=== PATIENT | female | born 1975 | race Caucasian/White ===

== ENCOUNTER 2018-04-23 04:38 | Observation (INO) | payer BC ==
[2018-04-23] MEDS ORDERED: ONDANSETRON 4 MG/2 ML VIAL ONE (04:48)
[2018-04-23] MEDS ORDERED: NS 1,000 ML IV ONE ×3 (04:56→06:43)
[2018-04-23] MEDS ORDERED: PROMETHAZINE HCL 25 MG/ML INJ IVP ONE (05:04)
[2018-04-23] MEDS ORDERED: PROMETHAZINE HCL 25 MG/ML INJ ONE (05:04)
--- NOTE | 2018-04-23 05:05 | EDPHY ---
H & P Stated Complaint: ABD PAIN, N/V SINCE /DIARRHEA SINCE Time Seen by Provider: 04/23/18 05:05 HPI/ROS: HPI CHIEF COMPLAINT: Nausea vomiting diarrhea severe abdominal pain HISTORY OF PRESENT ILLNESS: This patient very pleasant 42-year-old female, she is visiting from out of town from [place] last night around 10:00 p.m. She started developing nausea vomiting and diarrhea mainly watery no blood. Denies any fever. She now presents to the emergency room as she vomited she thinks 15 times and had multiple episodes of watery diarrhea. Her main complaint is severe abdominal cramping. She has not had a fever. She has been dry heaving. She is visiting from [place]. She denies any significant alcohol intake. She does state that in the airport she had a chicken sandwich on that seemed to be undercooked however she did not eat did meet and threw it out. She said she felt fine Tuesday and Tuesday night developed significant nausea vomiting and diarrhea. She did recently last week start on Lexapro low-dose 10 mg. Past Medical History: Denies significant medical history except for anxiety and depression Past Surgical History: Denies significant surgical history except for toe surgery Social History: Denies daily use of drugs alcohol tobacco. Resides in [place]. Family History: Noncontributory ROS REVIEW OF SYSTEMS: A comprehensive 10 point review of systems is otherwise negative aside from elements mentioned in the history of present illness. Exam Constitutional appears nontoxic however actively vomiting and dry heaving triage nursing summary reviewed, vital signs reviewed, awake/alert. Eyes normal conjunctivae and sclera, EOMI, PERRLA. HENT normal inspection, atraumatic, dry mucus membranes, no epistaxis, neck supple/ no meningismus, no raccoon eyes. Respiratory clear to auscultation bilaterally, normal breath sounds, no respiratory distress, no wheezing. Cardiovascular rate normal, regular rhythm, no murmur, no edema, distal pulses normal. Gastrointestinal mild tender to palpation diffusely, no peritoneal signs, no rebound, no guarding, normal bowel sounds, no distension, no pulsatile mass. Genitourinary no CVA tenderness. Musculoskeletal no midline vertebral tenderness, full range of motion, no calf swelling, no tenderness of extremities, no meningismus, good pulses, neurovascularly intact. Skin pink, warm, & dry, no rash, skin atraumatic. Neurologic awake, alert and oriented x 3, AAOx3, moves all 4 extremities equally, motor intact, sensory intact, CN II-XII intact, normal cerebellar, normal vision, normal speech. Psychiatric normal mood/affect. Heme/Lymph/Immune no lymphadenopathy. Differential diagnosis includes but is not limited to and in no particular order : Bowel obstruction, appendicitis, gallbladder disease, diverticulitis, colitis , enteritis, perforated viscus, gastritis, GERD, esophagitis, urinary tract infection, pyelonephritis, kidney stones Medical Decision Making: Plan for this patient IV establishment IV fluid bolus 2 L normal saline, IV Phenergan for nausea IV Ativan for anxiety, lab work including abdominal labs and test, urinalysis, CT scan abdomen pelvis with IV contrast. Re-evaluation: 0631: Blood work has been reviewed elevated lactic acid most likely due to volume depletion. She is not hypotensive and she is not febrile. However she has had extensive nausea vomiting and diarrhea. She received 2 L of fluid here in the emergency room. Will repeat lactic acid to make sure it is trending down. I did review her other blood work shows a mild leukocytosis. I have asked for stool study as well. Her CT scan shows diffuse colitis. I discussed the case with the hospitalist service Dr. Fox. He agrees to admit the patient for colitis nausea vomiting and diarrhea volume depletion dehydration. Additionally I spoke with Gastroenterology Dr. Mata, who will consult on the patient. Discussed antibiotics were no antibiotics this time will hold off on antibiotics until stool studies have resulted. Patient is comfortable being admitted and will prefer this. She is doing better after Phenergan and Ativan. I as well as IV fluids. 0644: Patient re-evaluated this time is feeling better with IV fluids nausea medicine. Abdomen mildly tender but no peritoneal signs. I discussed the patient's blood work and CT scan results with her. Additionally discussed reason for admission she is comfortable this would prefer to be admitted today. I have ordered her 3rd L fluid. She is volume depleted. Dehydrated. Patient be admitted to the medicine service with a gastroenterology consult. She is not vomiting here and she is comfortable this plan. 2nd lactic is repeated as her 1st 1 was very high. Lactic trended down 6.7-3.0. Getting 3rd L fluid. Not hypotensive or febrile. The lactic acid is not elevated due to sepsis it is elevated due to volume depletion. Source: Patient - Personal History LMP (Females 10-55): Unknown Current Tetanus Diphtheria and Acellular Pertussis (TDAP): Yes - Medical/Surgical History Hx Asthma: No Hx Chronic Respiratory Disease: No Hx Diabetes: No Hx Cardiac Disease: No Hx Renal Disease: No Hx Cirrhosis: No Hx Alcoholism: No Hx HIV/AIDS: No Hx Splenectomy or Spleen Trauma: No Other PMH: SX TOES - Social History Smoking Status: Never smoked Constitutional: Initial Vital Signs Temperature (C) 36.5 C 04/23/18 04:43 Heart Rate 93 04/23/18 04:43 Respiratory Rate 16 04/23/18 04:43 Blood Pressure 122/79 H 04/23/18 04:43 O2 Sat (%) 100 04/23/18 04:43 O2 Delivery Mode Nasal Cannula O2 (L/minute) 2 Allergies/Adverse Reactions: erythromycin base Allergy (Verified 04/23/18 04:41) Home Medications: Medication Instructions Recorded Atorvastatin Calcium [Lipitor 10 10 mg PO HS 04/23/18 mg (*)] Escitalopram Oxalate 5 mg PO DAILY 04/23/18 Norethindrone-E.estradiol-Iron [Lo 1 tab PO DAILY 04/23/18 Loestrin Fe 1-10 Tablet] Ondansetron Odt [Zofran Odt 4 mg 4 mg PO Q8H #12 tab 04/23/18 (*)] Zolpidem Tartrate [Ambien 5MG (*)] 5 mg PO HS 04/23/18 Medical Decision Making - Diagnostics Imaging Results: Imaging Impressions Abdomen CT 04/23/18 05:12 Impression: 1. Mild diffuse colitis extending from the terminal ileum to the anal verge. Query infectious etiologies versus inflammatory etiologies, such as ulcerative colitis or Crohn disease. 2. Small free fluid. No abscess or bowel obstruction. 3. Minimal secondary inflammation of the appendix. The study was performed as an emergency on-call case and discussed by telephone with Dr. Andrea Rivero at 6:15 a.m. The final interpretation is concordant with the original communication. - Data Points Laboratory Results: Laboratory Results 04/23/18 05:12 04/23/18 05:12 Medications Given: Discontinued Medications Acetaminophen (Tylenol) 650 mg PO Q4HRS PRN PRN Reason: Pain, Mild/Fever, Can Take PO Stop: 10/20/18 06:25 Last Admin: 04/23/18 10:20 Dose: 650 mg Sodium Chloride (Ns) 1,000 mls @ 0 mls/hr IV ONCE ONE; Wide Open PRN Reason: Protocol Stop: 04/23/18 04:57 Last Admin: 04/23/18 04:58 Dose: 1,000 mls Sodium Chloride (Ns) 1,000 mls @ 0 mls/hr IV EDNOW ONE; Wide Open PRN Reason: Protocol Stop: 04/23/18 05:13 Last Admin: 04/23/18 05:22 Dose: 1,000 mls Ciprofloxacin/Dextrose (Cipro 400 Mg (Premix)) 200 mls @ 200 mls/hr IV EDNOW ONE PRN Reason: Protocol Stop: 04/23/18 07:12 Last Admin: 04/23/18 06:25 Dose: 200 mls Metronidazole/Sodium Chloride (Flagyl 500 Mg (Premix)) 100 mls @ 100 mls/hr IV EDNOW ONE PRN Reason: Protocol Stop: 04/23/18 07:12 Last Admin: 04/23/18 10:01 Dose: Not Given Dextrose/Sodium Chloride (D5w 1/2 Ns) 1,000 mls @ 100 mls/hr IV CONT NEYDA Stop: 10/20/18 06:29 Last Admin: 04/23/18 10:18 Dose: 1,000 mls Sodium Chloride (Ns) 1,000 mls @ 0 mls/hr IV ONCE ONE PRN Reason: Wide Open Stop: 04/23/18 06:44 Last Admin: 04/23/18 06:46 Dose: 1,000 mls Lorazepam (Ativan Injection) 1 mg IVP EDNOW ONE Stop: 04/23/18 05:11 Last Admin: 04/23/18 05:11 Dose: 1 mg Morphine Sulfate (Morphine) 1 - 2 mg IVP Q4HRS PRN PRN Reason: Pain, Severe Unable to Take PO Stop: 05/03/18 06:42 Last Admin: 04/23/18 10:18 Dose: 1 mg Promethazine HCl (Phenergan) 12.5 mg IVP EDNOW ONE Stop: 04/23/18 05:05 Last Admin: 04/23/18 05:06 Dose: 12.5 mg Departure - Departure Disposition: [facility] Acute Clinical Impression: Colitis, Dehydration, Nausea vomiting and diarrhea Condition: Fair
[2018-04-23] MEDS ORDERED: LORazepam 2 MG/ML INJ ONE (05:10)
[2018-04-23] MEDS ORDERED: LORazepam 2 MG/ML INJ IVP ONE (05:10)
[2018-04-23 05:37] LABS: PLATELET COUNT 251 10^3/uL (150-400)
[2018-04-23] MEDS ORDERED: IOPAMIDOL (ISOVUE-300) 100 ML BTL ONE (05:45)
[2018-04-23] MEDS ORDERED: CIPROFLOXACIN 400 MG/DEXTROSE 200 ML IV ONE (06:13)
[2018-04-23] MEDS ORDERED: ONDANSETRON DISINTEGRATING 4 MG TAB PO PRN (06:26)
[2018-04-23] MEDS ORDERED: ACETAMINOPHEN 325 MG TAB PO PRN (06:26)
[2018-04-23] MEDS ORDERED: ONDANSETRON 4 MG/2 ML VIAL IVP PRN (06:26)
[2018-04-23] MEDS ORDERED: D5W 1/2 NS 1,000 ML IV SCH (06:30)
--- NOTE | 2018-04-23 06:41 | PDGENHP ---
History and Physical - Chief Complaint Nausea, vomiting - History of Present Illness 42 yo F w/ no PMHx p/w abdominal pain. Patient states she began to feel some abdominal pain yesterday during the day. Then last night she began to vomit profusely. This was followed by frequent diarrhea, >10 occurrences. At this point she came to the ED. She denies sick contacts and recent antibiotics. She did have a suspicious piece of chicken at the airport but this was on . History Information - Allergies/Home Medication List Allergies/Adverse Reactions: erythromycin base Allergy (Verified 04/23/18 04:41) Home Medications: Ambien 04/23/18 [Last Taken Unknown] Control 04/23/18 [Last Taken Unknown] Lexapro 04/23/18 [Last Taken Unknown] Lipitor 04/23/18 [Last Taken Unknown] I have personally reviewed and updated: family history, medical history - Past Medical History no pertinent PMH - Surgical History Additional surgical history: Foot surgery - Family History Additional family history: Asked, denies - Social History Smoking Status: Never smoked Review of Systems Review of Systems: ROS: 10pt was reviewed & negative except for what was stated in HPI & below Physical Exam Physical Exam: Temp Pulse Resp BP Pulse Ox 36.5 C 94 16 116/80 96 04/23/18 04:43 04/23/18 06:00 04/23/18 06:00 04/23/18 06:00 04/23/18 06:00 Constitutional: appears nourished, uncomfortable Eyes: PERRL, EOMI Ears, Nose, Mouth, Throat: moist mucous membranes, no oral mucosal ulcers Cardiovascular: regular rate and rhythym, no murmur, rub, or gallop Respiratory: no respiratory distress, no rales or rhonchi Gastrointestinal: normoactive bowel sounds, tenderness (Mild, epi-gastric and LLQ), No guarding, No rebound, No distension Skin: warm, normal color Musculoskeletal: full muscle strength, no muscle tenderness Neurologic: AAOx3, CN II-XII Intact Psychiatric: interacting appropriately, not anxious Lab Data & Imaging Review 04/23/18 05:12 04/23/18 05:12 WBC 10.46 10^3/uL (3.80-9.50) H 04/23/18 05:12 RBC 4.27 10^6/uL (4.18-5.33) 04/23/18 05:12 Hgb 13.5 g/dL (12.6-16.3) 04/23/18 05:12 Hct 39.9 % (38.0-47.0) 04/23/18 05:12 MCV 93.4 fL (81.5-99.8) 04/23/18 05:12 MCH 31.6 pg (27.9-34.1) 04/23/18 05:12 MCHC 33.8 g/dL (32.4-36.7) 04/23/18 05:12 RDW 13.0 % (11.5-15.2) 04/23/18 05:12 Plt Count 251 10^3/uL (150-400) 04/23/18 05:12 MPV 11.8 fL (8.7-11.7) H 04/23/18 05:12 Neut % (Auto) 83.7 % (39.3-74.2) H 04/23/18 05:12 Lymph % (Auto) 7.6 % (15.0-45.0) L 04/23/18 05:12 Graves % (Auto) 7.8 % (4.5-13.0) 04/23/18 05:12 Eos % (Auto) 0.2 % (0.6-7.6) L 04/23/18 05:12 Baso % (Auto) 0.3 % (0.3-1.7) 04/23/18 05:12 Nucleat RBC Rel Count 0.0 % (0.0-0.2) 04/23/18 05:12 Absolute Neuts (auto) 8.75 10^3/uL (1.70-6.50) H 04/23/18 05:12 Absolute Lymphs (auto) 0.80 10^3/uL (1.00-3.00) L 04/23/18 05:12 Absolute Monos (auto) 0.82 10^3/uL (0.30-0.80) H 04/23/18 05:12 Absolute Eos (auto) 0.02 10^3/uL (0.03-0.40) L 04/23/18 05:12 Absolute Basos (auto) 0.03 10^3/uL (0.02-0.10) 04/23/18 05:12 Absolute Nucleated RBC 0.00 10^3/uL (0-0.01) 04/23/18 05:12 Immature Gran % 0.4 % (0.0-1.1) 04/23/18 05:12 Immature Gran # 0.04 10^3/uL (0.00-0.10) 04/23/18 05:12 VBG Lactic Acid 6.7 mmol/L (0.7-2.1) H 04/23/18 05:25 Sodium 144 mEq/L (135-145) 04/23/18 05:12 Potassium 3.7 mEq/L (3.3-5.0) 04/23/18 05:12 Chloride 105 mEq/L (97-110) 04/23/18 05:12 Carbon Dioxide 19 mEq/l (22-31) L 04/23/18 05:12 Anion Gap 20 mEq/L (8-16) H 04/23/18 05:12 BUN 13 mg/dL (7-23) 04/23/18 05:12 Creatinine 0.8 mg/dL (0.6-1.0) 04/23/18 05:12 Estimated GFR > 60 04/23/18 05:12 Glucose 142 mg/dL (70-100) H 04/23/18 05:12 Calcium 8.7 mg/dL (8.5-10.4) 04/23/18 05:12 Total Bilirubin 0.5 mg/dL (0.1-1.4) 04/23/18 05:12 Conjugated Bilirubin 0.3 mg/dL (0.0-0.5) 04/23/18 05:12 Unconjugated Bilirubin 0.2 mg/dL (0.0-1.1) 04/23/18 05:12 AST 27 IU/L (14-46) 04/23/18 05:12 ALT 30 IU/L (9-52) 04/23/18 05:12 Alkaline Phosphatase 61 IU/L (38-126) 04/23/18 05:12 Total Protein 7.4 g/dL (6.3-8.2) 04/23/18 05:12 Albumin 4.5 g/dL (3.5-5.0) 04/23/18 05:12 Lipase 104 IU/L (23-300) 04/23/18 05:12 Beta HCG, Qual NEGATIVE 04/23/18 05:12 Urine Color YELLOW 04/23/18 04:05 Urine Appearance CLEAR 04/23/18 04:05 Urine pH 6.0 (5.0-7.5) 04/23/18 04:05 Ur Specific Jacob 1.015 (1.002-1.030) 04/23/18 04:05 Urine Protein NEGATIVE (NEGATIVE) 04/23/18 04:05 Urine Ketones TRACE (NEGATIVE) H 04/23/18 04:05 Urine Blood 1+ (NEGATIVE) H 04/23/18 04:05 Urine Nitrate NEGATIVE (NEGATIVE) 04/23/18 04:05 Urine Bilirubin NEGATIVE (NEGATIVE) 04/23/18 04:05 Urine Urobilinogen NEGATIVE EU (0.2-1.0) 04/23/18 04:05 Ur Leukocyte Esterase NEGATIVE (NEGATIVE) 04/23/18 04:05 Urine RBC 3-5 /hpf (0-3) H 04/23/18 04:05 Urine WBC 1-3 /hpf (0-3) 04/23/18 04:05 Ur Epithelial Cells TRACE /lpf (NONE-1+) 04/23/18 04:05 Urine Bacteria TRACE /hpf (NONE SEEN) H 04/23/18 04:05 Urine Mucus TRACE /lpf (NONE-1+) 04/23/18 04:05 Urine Glucose NEGATIVE (NEGATIVE) 04/23/18 04:05 Imaging Review: prelim CTAP 1. Diffuse mild colitis -terminal ileum to anal verge - infectious versus UC/ crohn disease. 2. Mild inflammation of appendix - like secondary to #1 3. Small FF. No abscess or perforation Assessment & Plan Assessment: 42 yo F p/w colitis. Plan: 1. Colitis - Vomiting and diarrhea x1 day with unclear etiology. She denies sick contacts or recent antibiotics. No blood in her stool. CT shows diffuse colitis with appearance suspicious for infection vs. IBD. - Admit for observation - Clear liquid, mIVF, anit-emetics, pain control - GI consulted in the ED, appreciate assistance - Discussed case with ED physician Dr. Garcia Diet - Clears, ADAT Code - Full Ppx - SCDs Dispo - Admit under observation status
[2018-04-23] MEDS ORDERED: PROMETHAZINE HCL 25 MG/ML INJ IVP PRN (09:13)
--- NOTE | 2018-04-23 10:49 | PDDCSUM ---
Discharge Summary Discharge Summary: Date of Admission/discharge: April 23, 2018 Discharge Diagnoses: Acute gastroenteritis and colitis, improved Lactic acidosis, resolved Acute dehydration, resolved Intractable nausea/vomiting - resolved Admission Diagnoses: Lactic acidosis Acute colitis Intractable nausea and vomiting Acute dehydration Consultants: N/A. PMH: Anxiety, depression PSH: Toe surgery Social history: Lives in [place] and is currently visiting her brother in [place]. She does not drink regularly. She does not smoke or do drugs. Family history: Noncontributory. Hospital Course: The patient is a 42-year-old female visiting from [place] who was admitted early this morning for intractable nausea and vomiting and severe diarrhea. Patient was treated in the emergency department with IV ciprofloxacin, 2 L of fluids, and promethazine. Patient does not recall being around anyone else who was sick with similar symptoms. She denies eating any questionable foods within the last 24 hrs, although she did have some chicken which could have been contaminated 2 days ago. She asked if her symptoms could be secondary to Lexapro 10 mg which had been started last Tuesday, but she did not appear to have other signs, symptoms, or history consistent with serotonin syndrome. Patient was suspected to have contracted a food-borne illness, possibly a viral infection or a toxin. Patient was admitted for observation and received IV fluids, 4 L total over about 12 hrs. She was feeling much better and was discharged home in fair condition. She was ambulating without any dizziness at the time of discharge. Review of systems: A 10 point review of systems was negative except as stated above. Physical Exam: General: The patient is a female who is alert and in no acute distress. HEENT: normocephalic, extraocular movements intact, conjunctivae clear, no lesions on face. Mucous membranes moist. Neck: trachea midline, no visible masses, no external lesions. Abd: soft and nondistended. Plus bowel sounds. +tenderness to palpation throughout. Musculoskeletal: Normal muscle tone and bulk. Neuro: cranial nerves II XII grossly intact. Intact gross motor and sensory function. Psych: appropriate mood/affect. Skin: No pallor. Heme/lymph: No peripheral edema. Condition: Fair. Discharged to: Home Pertinent tests/labs/imaging: CT abd/pelv: Mild diffuse colitis from terminal ileum to anal verge with minimal secondary inflammation of the appendix. Lactic acid on admission - 6.7 --> 3 after 1 hour. Medications: Please see med rec form. Patient was given prescription for Zofran in case of nausea. She is instructed not to take this with Lexapro. She may resume Lexapro once all of her GI symptoms subside. Special instructions: Return to hospital if symptoms recur or worsen. Would recommend to avoid Imodium, unless patient really needs it for her airplane flight. Continue BRAT diet and advance as tolerated. Recommended that patient consume plenty of fluids with electrolytes in them. Follow up: Follow up with primary care physician within 1 week.
[2018-04-23 11:58] VITALS: BP 108/66
--- NOTE | 2018-04-23 13:16 | GCON ---
[f rep st] CONSULTATION DATE OF CONSULTATION: 04/23/2018 CHIEF COMPLAINT: Diarrhea, abdominal pain. HPI: I am asked to see this patient in consultation by Dr. Fox for a chief complaint of naus ea, vomiting, and diarrhea. Patient is a 42-year-old visiting from [place] in a usual state of good health until about a week ago. She started Lexapro and did notice some headache. She states that sh e around that time had some bad piece of chicken and then last night had acute onset of nausea, vomit ing, and diarrhea with multiple episodes of emesis and at least 10 episodes of diarrhea associated wi th crampy abdominal pain. However, there was no blood in her stools. No melena. No hematemesis. N o fevers or chills. She has had had a history of food poisoning in the past but has no underlying co litis. There is no family history for inflammatory bowel disease or colon cancer. Since admission w ith IV fluids, the patient is overall feeling better. ALLERGIES: Erythromycin. MEDICINES AT HOME: Lipitor, Loestrin. Recently started Lexapro, and she is on Ambien. PAST MEDICAL HISTORY: Anxiety. SOCIAL HISTORY: Occasional alcohol use. FAMILY HISTORY: Negative for inflammatory bowel disease or colon cancer. REVIEW OF SYSTEMS: I have performed a complete review of systems that is negative except for the per tinent positives and negatives noted above in the HPI. PHYSICAL EXAM: VITAL SIGNS: Afebrile at 37.3. BP 124/75. Pulse 90. CONSTITUTIONAL: She is alert , oriented. EYES: No scleral icterus. HENT: No oral lesions. CARDIOVASCULAR: Regular rhythm. CH EST: Clear to auscultation. ABDOMEN: Soft but tender, but no rebound. NEUROLOGIC: Nonfocal. SKI N: No skin rashes. Chemistries are normal. BUN 13 and creatinine 0.8. test negative. White count slightly e levated at 10. CT scan of the abdomen shows diffuse moderate colitis. ASSESSMENT: Patient with acute onset of nausea, vomiting, diarrhea, with diffuse colitis seen on a C T scan. I think undoubtedly this is an infectious cause. There is no bloody diarrhea. Could consid er antibiotic therapy, although with some etiologies it is actually recommended not to treat with ant ibiotics. PLAN: 1. We will await stool PCR to guide if antibiotic therapy may be of use for her. If her PCR is nega tive, we could give consideration to empiric therapy or with antibiotics or as guided by her clinical course. 2. I see no need for endoscopy at this time, but we will follow her clinical improvement with IV flu ids. Thank you for this consult. Sincerely, /[id number]/MODL
[2018-04-24] MEDS ORDERED: NORETHINDRONE E ESTRADIOL IRON PO SCH (09:00)
== END 2018-04-23 17:15 | disposition home or self-care (01) ==
LOC: F1N 08:14
PROVIDERS: ADMIT Student in an Organized Health Care Education/Training Program; ATTEND Student in an Organized Health Care Education/Training Program
DX: K52.9 Noninfective gastroenteritis and colitis, unspecified (principal); E87.2 Acidosis; E86.0 Dehydration; R11.2 Nausea with vomiting, unspecified
CPT/HCPCS: 74177; G0378; 96374; J0744; J2060; J2270; J2405; J2550; Q9967